=== PATIENT | male | born 1955 | race Caucasian/White ===

== ENCOUNTER 2018-12-21 11:07 | Day surgery (SDC) | payer BC ==
--- NOTE | 2018-12-20 14:23 | PREOPHP ---
DATE OF ADMISSION: 12/21/2018 Scheduled for surgery 12/21/2018. HISTORY OF PRESENT ILLNESS: The patient is a 63-year-old male in overall stable health with a 1-year history of umbilical hernia that is enlarging and causing pain. He is scheduled to undergo umbilica l hernia repair. MEDICATIONS: 1. Suboxone. 2. Hydrochlorothiazide. 3. Lisinopril; the latter two for hypertension. ALLERGIES: PENICILLIN. PAST SURGICAL HISTORY: Open reduction internal fixation left leg fracture in the past. REVIEW OF SYSTEMS: Kidney stones. PHYSICAL EXAMINATION: GENERAL: The patient is 5 foot 11 inches, 251 pounds VITAL SIGNS: Within normal limits. HEENT: Within normal limits. CHEST: Clear. HEART: Regular rhythm. BREASTS: Without masses. ABDOMEN: Obese and soft. There is a moderate sized reducible umbilical hernia. RECTAL: Per primary care. EXTREMITIES: Without edema. NEUROLOGIC: Physiologic. IMPRESSION: Umbilical hernia. PLAN: Open repair of umbilical hernia with possible mesh. I have had a full discussion with the pat ient regarding the nature of his condition, the nature of the surgery, indications, alternatives, opt ions and risks including bleeding, infection, recurrence with or without mesh, scarring or deformity of umbilicus, injury to adjacent structures or organs, etc. The patient understands and agrees to pr oceed. Dictated By: MERYL DOBBINS/JOSELYN Conf#: [id number] DID#: [id number]
[2018-12-21] VITALS (12 sets, daily range): BP systolic 106–154; BP diastolic 57–75; PULSE 60–74; RESP 15–19; Ht 175.3 cm; Wt 113.5 kg
[~2018-12-21] VITALS: Ht 175.3 cm; Wt 113.5 kg
[~2018-12-21 11:07] MED LIST: CEFAZOLIN 1 GM/50 ML (PMX) 50 ML IVPB ONE; SOD CHLORIDE 0.9% 1,000 ML IV SCH
[2018-12-21] MEDS ORDERED: HYDR25TA6 PO (11:34)
[2018-12-21] MEDS ORDERED: ATOR20TA38 PO (11:34)
[2018-12-21] MEDS ORDERED: LISI-471 PO (11:35)
[2018-12-21] MEDS ORDERED: BUPR1TAB34 SL (11:37)
--- NOTE | 2018-12-21 12:43 | PREAC ---
Date/Time of Note Date/Time of Note DATE: 12/21/18 TIME: 12:42 Anesthesia Eval and Record Evaluation Time Pre-Procedure Interview DATE: 12/21/18 TIME: 12:42 Age 63 Sex male NPO: 8 hrs Preoperative diagnosis umbillical hernia Planned procedure umbillical hernia repair Past Medical History Past Medical History: Includes Cardio: HTN, Dyslipidemia GI: Obesity Surgery & Anesthesia Issues No known issue Meds Anticoagulation: No Beta Fern within 24 hr: No Reason Beta Fern not given: Pt. not on B-Fern Reported Medications Buprenorphine Hcl/Naloxone Hcl (BUPRENORPHIN-NALOXON 8-2 MG TB) 1 Each Tab.subl, 1 EACH SL DAILY, TAB 12/21/18 Lisinopril* (Lisinopril*) 20 Mg Tablet, 20 MG PO DAILY, #30 TAB 12/21/18 Atorvastatin Calcium* (Atorvastatin Calcium*) 20 Mg Tablet, 20 MG PO QHS, #30 TAB 12/21/18 Hydrochlorothiazide* (Hydrochlorothiazide*) 25 Mg Tab, 25 MG PO DAILY, #30 TAB 12/21/18 Current Medications Sodium Chloride 1,000 ml @ 75 mls/hr [id number] IV Last administered on 12/21/18at 12:00; Admin Dose 75 MLS/HR; Start 12/21/18 at 06:00; Stop 12/21/18 at 23:00 Meds reviewed: Yes Allergies Coded Allergies: Penicillins (Verified Allergy, Unknown, 12/21/18) Allergies Reviewed: Yes Labs/Studies Labs Reviewed: Reviewed by anesthesiologist test: N/A Studies: ECG Pre-procedure Exam Last vitals Vital Signs Date Temp Pulse Resp B/P (MAP) Pulse Ox O2 O2 Flow FiO2 Time Delivery Rate 12/21/18 99.0 60 16 154/69 95 Room Air 12:10 (97) Airway: Adequate mouth opening, Adequate thyromental dist Mallampati: Mallampati II Teeth: Normal Lung: Normal Heart: Normal ASA Physical Status ASA physical status: 3 Emergency: None Planned Anesthetic General/MAC: ETT Nerve block: TAP (bilateral) Pre-operative Attestations Prior to commencing anesthesia and surgery, the patient was re-evaluated, there was verification of: *The patient's identity *The results of appropriate recent lab work and preoperative vital signs *The above evaluation not changing prior to induction *Anesthetic plan, risk benefits, alternative and complications discussed with patient/family; questions answered; patient/family understands, accepts and wishes to proceed. DEN[place] HICKS Dec 21, 2018 12:43
[2018-12-21] MEDS ORDERED: POLYMYXIN/BACITRACIN 1L IRRIG ONE (12:47)
[2018-12-21] MEDS ORDERED: MIDAZOLAM 1 MG/ML 2 ML INJ ONE (12:48)
[2018-12-21] MEDS ORDERED: FENTAnyl 50 MCG/ML VIAL ONE (12:52)
[2018-12-21] MEDS ORDERED: ROPIVACAINE 0.5 % 30 ML VIAL ONE (12:52)
[2018-12-21] MEDS ORDERED: ONDANSETRON 4 MG INJ IV PRN (13:00)
[2018-12-21] MEDS ORDERED: ALBUTEROL 0.083% (NEB) 2.5 MG/3 ML AMP HHN PRN (13:00)
[2018-12-21] MEDS ORDERED: MEPERIDINE 25 MG INJ IV PRN (13:00)
[2018-12-21] MEDS ORDERED: DIPHENHYDRAMINE 50 MG INJ IV PRN (13:00)
[2018-12-21] MEDS ORDERED: FENTAnyl 50 MCG/ML VIAL IV PRN ×3 (13:00)
[2018-12-21] MEDS ORDERED: METOCLOPRAMIDE 10 MG INJ IV PRN (13:00)
[2018-12-21] MEDS ORDERED: HYDROmorphONE 1 MG/5 ML IV SYRINGE IV PRN ×3 (13:00)
[2018-12-21] MEDS ORDERED: BUPIVACAINE 0.5% (SDV) 30 ML INJ ONE (13:15)
[2018-12-21] MEDS ORDERED: ROCURONIUM 50 MG INJ ONE (13:51)
[2018-12-21] MEDS ORDERED: CLINDAMYCIN 900 MG/D5W (PMX) 50 ML IVPB ONE (13:51)
[2018-12-21] MEDS ORDERED: PROPOFOL 20 ML ONE (13:51)
[2018-12-21] MEDS ORDERED: KETOROLAC 30 MG INJ ONE (13:51)
[2018-12-21] MEDS ORDERED: SUGAMMADEX SODIUM 200 MG/2 ML VIAL IV ONE (13:52)
--- NOTE | 2018-12-21 14:06 | SIPON ---
Date/Time of Note Date/Time of Note DATE: 12/21/18 TIME: 14:05 Operative Report Preoperative Diagnosis umbilical hernia Postoperative Diagnosis same Operation/Procedure Performed open repair of umbilical hernia Surgeon see signature line dental assistant none Anesthesia: general Estimated blood loss: minimal Transfusion Required none Specimen none Grafts/Implants none Complications none MERYL SIMEON Dec 21, 2018 14:06
--- NOTE | 2018-12-21 17:16 | PAC ---
Date/Time of Note Date/Time of Note DATE: 12/21/18 TIME: 17:16 Post-Anesthesia Notes Post-Anesthesia Note Last documented vital signs Vital Signs Date Temp Pulse Resp B/P (MAP) Pulse Ox O2 O2 Flow FiO2 Time Delivery Rate 12/21/18 66 17 119/60 95 Room Air 15:00 (79) 12/21/18 2.0 14:34 12/21/18 98.0 14:15 Activity: WNL Respiratory function: WNL Cardiovascular function: WNL Mental status: Baseline Pain reasonably controlled: Yes Hydration appropriate: Yes Nausea/Vomiting absent: Yes DEN[place] HICKS Dec 21, 2018 17:16
--- NOTE | 2018-12-21 20:56 | OPR ---
DATE OF OPERATION: 12/21/2018 SURGEON: MERYL SIMEON MD [employer]; NONE ANESTHESIOLOGIST; DR. HICKS GENERAL ANESTHESIA PREOPERATIVE DIAGNOSIS: Umbilical hernia. POSTOPERATIVE DIAGNOSIS: Umbilical hernia. OPERATION PERFORMED: Open repair of umbilical hernia. DESCRIPTION OF PROCEDURE: The patient was taken to the operating room and under general anesthesia, with sequential compression device stockings in place, he was prepped and draped in the usual fashion. A curvilinear infraumbilical skin crease incision was made, achieved hemostasis with cautery. The hernia sac was dissected free of the overlying umbilical skin and circumferentially dissected below the fascia. It was then reduced and consisted of properitoneal fat. Repair was accomplished in a transverse orientation utilizing interrupted simple and [id number] inverted 0 Prolene sutures. A very satisfactory repair was accomplished without tension. The hernia defect itself measured approximately 2cm transversely by 1 cm vertically. The subcutaneous tissues were injected with 0.5% Marcaine plain. The undersurface of the umbilical skin was tacked to the repair with 3-0 Vicryl and then the deep dermal subcutaneous tissues closed with interrupted 3-0 Vicryl and the skin closed with continuous 4-0 Monocryl subcuticular suture. Mastisol and 1/2-inch Steri-Strips were applied, followed by Telfa placed into the umbilical cleft and dry sterile dressing. Final sponge and needle counts were correct. The patient tolerated the procedure well and left the operating room in good condition. Dictated By: MERYL DOBBINS/JOSELYN Conf#: [id number] DID#: [id number] JOSÉ MIGUEL
== END 2018-12-21 15:55 | disposition home or self-care (01) ==
LOC: SDS 11:07
PROVIDERS: ATTEND Surgery
DX: K42.9 Umbilical hernia without obstruction or gangrene (principal); I10 Essential (primary) hypertension; E78.5 Hyperlipidemia, unspecified
CPT/HCPCS: 49585; J1170; J1200; J1885; J2175; J2250; J2405; J2795; J3010; Z7512; Z7610; J0690